=== PATIENT | female | born 1950 | race Caucasian/White ===

== ENCOUNTER → 2018-05-03 | Outpatient (CLI) | payer OTHER ==
[~2018-05-03] MED LIST: AMITRIPTYLINE H10 M3 PO; ASPIRIN EC81 M1 PO; BONIVA150 MG; BUSPIRONE HCL10 MG PO; CALCIUM 600 +1 EAC1; CARDIZEM CD300 MG; CLONAZEPAM; CYMBALTA30 MG PO; EFFEXOR XR75 MG PO; IBUPROFEN 200200 M1 PO; LODINE XL400 MG PO; LODINE XL500 MG PO; LYRICA 50 MG50 MG PO; MULTIVITAMINS; NEURONTIN 300300 M1 PO; OXYBUTYNIN 5 MG5 M1 PO; PERCOCET 5-3251 EACH PO; PRAVACHOL40 MG PO; PROTONIX40 M2; PROZAC 20 MG20 MG; ROBAXIN 750 MG750 M1 PO; VITAMIN D1000 UNI1; WELLBUTRIN XL150 MG PO; ZANAFLEX4 M1 PO; ZOFRAN 4 MG ORAL4 M1 DIS
== END ==
LOC: M.ULTRA 16:27
DX: M25.561 Pain in right knee (principal)

== ENCOUNTER 2021-03-31 22:59 | Emergency (ER) | payer OTHER ==
[~2021-03-31] VITALS: Ht 167.6 cm; Wt 76.2 kg
[2021-03-31 23:29] LABS: ABSOLUTE BASOPHILS 0.1 thou/uL (0.0-0.2); ABSOLUTE EOSINOPHILS 0.2 thou/uL (0.0-0.7); ABSOLUTE LYMPHOCYTES 4.7 thou/uL (0.8-5.3); ABSOLUTE MONOCYTES 1.3 thou/uL (0.0-1.2); ABSOLUTE NEUTROPHILS 4.1 thou/uL (1.6-8.1); BASOPHILS 0.6 %; EOSINOPHILS 1.6 %; HEMATOCRIT 40.5 % (37.0-47.0); HEMOGLOBIN 13.6 gm/dL (12.0-15.0); LYMPHOCYTES 45.5 %; MCH 31.6 pg (26.0-34.0); MCHC 33.7 g/dL (28.0-37.0); MCV 93.8 fL (80.0-100.0); MONOCYTES 12.6 %; MPV 6.9 fl. (7.2-11.1); NUCLEATED RBCS 0 /100WBC; PLATELET COUNT* 452 thou/uL (150-400); POLYS 39.7 %; RBC 4.31 mil/uL (4.20-5.00); RDW-CV 13.2 % (10.5-14.5); WBC 10.4 thou/uL (4.0-11.0)
[2021-03-31 23:38] LABS: CALCIUM 8.4 mg/dL (8.5-10.1); CREATININE 1.1 mg/dL (0.6-1.3); POTASSIUM 3.4 mmol/L (3.5-5.1)
[2021-03-31 23:43] LABS: ALBUMIN 3.8 g/dL (3.4-5.0); TOTAL BILIRUBIN 0.2 mg/dL (<0.1-1.0)
[2021-04-01 01:21] LABS: URINE BILIRUBIN NEGATIVE (Negative); URINE BLOOD NEGATIVE (Negative); URINE CLARITY CLEAR; URINE COLOR YELLOW; URINE GLUCOSE-RANDOM 1+ (Negative); URINE KETONES TRACE (Negative); URINE LEUKOCYTES-REFLEX NEGATIVE (Negative); URINE NITRITE-REFLEX NEGATIVE (Negative); URINE PROTEIN NEGATIVE (Negative); URINE SPECIFIC GRAVITY >= 1.030 (1.005-1.030); URINE UROBILINOGEN 0.2 E.U./dl (0.2-1.0)
[2021-04-01] MEDS ORDERED: MEDROLDOSEPACK PO (01:28)
[2021-04-01] MEDS ORDERED: DIFLUCAN150 MG PO (01:28)
[2021-04-01] MEDS ORDERED: MACROBID 100 M100 M1 PO (01:28)
[2021-04-01 01:47] VITALS: BP 102/81
== END 2021-04-01 01:49 | disposition home or self-care (01) ==
LOC: M.ERS 22:59
PROVIDERS: Personal Emergency Response Attendant
DX: L27.0 Generalized skin eruption due to drugs and medicaments taken internally (principal); T36.8X5A Adverse effect of other systemic antibiotics, initial encounter; R11.2 Nausea with vomiting, unspecified; R07.89 Other chest pain; I48.91 Unspecified atrial fibrillation; F32.9 Major depressive disorder, single episode, unspecified; M81.0 Age-related osteoporosis without current pathological fracture; M19.90 Unspecified osteoarthritis, unspecified site; F17.210 Nicotine dependence, cigarettes, uncomplicated; Z90.711 Acquired absence of uterus with remaining cervical stump; Z90.49 Acquired absence of other specified parts of digestive tract; Z79.899 Other long term (current) drug therapy; Z88.2 Allergy status to sulfonamides; Z88.8 Allergy status to other drugs, medicaments and biological substances; Y92.89 Other specified places as the place of occurrence of the external cause